=== PATIENT | female | born 1990 | race American Indian/Alaskan Native ===

== ENCOUNTER 2016-12-23 07:08 | Emergency (ER) | payer OTHER ==
[2016-12-23 07:33] VITALS: BP 155/96
[2016-12-23] MEDS ORDERED: TORADOL IM ONE (08:20)
[2016-12-23] MEDS ORDERED: NORCO 5/325 PO ONE (08:20)
--- NOTE | 2016-12-23 08:24 | Emergency Department Report ---
HPI - General Chief Complaint: Fall Time Seen by Provider: 12/23/16 08:13 - HPI HPI: 25-year-old female presents today complaining of right foot and ankle pain post falling down steps last night. Denies having any head injury or loss of consciousness. She describes her pain as 9 out of 10 constant, throbbing pain. Denies numbness, weakness, paresthesias. She denies taking any medication for pain relief. Denies fever, chills, nausea vomiting, chest pain, shortness of breath, abdominal pain. ED Past Medical Hx - Past Medical History Hx Asthma: Yes (as a child) Additional medical history: Bronchitis - Surgical History Past Surgical History?: No - Social History Smoking Status: Current Every Day Smoker Substance Use Type: Alcohol - Medications Home Medications: Home Medications Medication Instructions Recorded Confirmed Last Taken Type Gentamicin 0.3% Ophth Soln 2 drops OP Q4H #1 bottle 03/06/15 Unknown Rx Ibuprofen [Motrin] 800 mg PO Q8H PRN #30 tablet 03/06/15 Unknown Rx traMADol [Ultram] 50 mg PO Q6HR PRN #14 tablet 03/06/15 Unknown Rx Acetaminophen/Codeine [Tylenol #3] 1 tab PO Q6H PRN #15 tab 10/04/15 Unknown Rx Fluticasone [Flonase] 1 spray NS QDAY #1 bottle 10/04/15 Unknown Rx Ibuprofen [Motrin 800 MG tab] 800 mg PO Q8HR PRN #30 tablet 10/04/15 Unknown Rx guaiFENesin DM [Robitussin Dm] 5 ml PO Q6HR PRN #120 udc 10/04/15 Unknown Rx Albuterol Sulfate [Ventolin HFA] 2 puff IH Q4H PRN #1 hfa.aer.ad 06/02/16 Unknown Rx predniSONE [Deltasone] 50 mg PO QDAY #5 tab 06/02/16 Unknown Rx Naproxen [Naprosyn] 500 mg PO BID #30 tablet 12/23/16 Unknown Rx ED Review of Systems ROS: Stated complaint: R FOOT PAIN Other details as noted in HPI Constitutional: denies: chills, fever, malaise Eyes: denies: eye pain ENT: denies: ear pain, throat pain, congestion Respiratory: denies: cough, shortness of breath, wheezing Cardiovascular: denies: chest pain, palpitations Endocrine: no symptoms reported Gastrointestinal: denies: abdominal pain, nausea, vomiting Musculoskeletal: joint swelling, arthralgia Neurological: denies: headache, weakness, numbness, paresthesias Physical Exam - Physical Exam Vital Signs: Vital Signs 12/23/16 07:20 Temperature 98.2 F Pulse Rate 100 H Respiratory 17 Rate Blood Pressure 155/96 O2 Sat by Pulse 97 Oximetry Physical Exam: GENERAL: The patient is well-developed and well-nourished. Patient is in NAD. HEAD: Normocephalic. Atraumatic. NECK: Full range of motion. No midline or paraspinal tenderness to palpation. BACK: Full ROM. No midline or paraspinal tenderness to palpation. Negative Straight leg raise bilaterally. CHEST/LUNGS: Clear to auscultation throughout. HEART/CARDIOVASCULAR: Regular rate and rhythm. No murmurs, rubs or gallops. ABDOMEN: Abdomen is soft, nontender. Bowel sounds normoactive. No guarding or rebound tenderness. RIGHT FOOT/ANKLE: Limited range of motion due to pain. Tenderness to palpation over the lateral aspect right foot and ankle when mild edema. No deformity or crepitus noted. Peripheral pulses intact. Capillary refill less than 2 seconds. NEURO: Alert and oriented 3, fluid speech, EOMs intact, normal facial sensation , strength exam 5/5 upper and lower extremities, GCS equals 15 ED Course Vital Signs 12/23/16 07:20 Temperature 98.2 F Pulse Rate 100 H Respiratory 17 Rate Blood Pressure 155/96 O2 Sat by Pulse 97 Oximetry ED Medical Decision Making - Lab Data Vital Signs 12/23/16 12/23/16 12/23/16 07:20 08:50 10:05 Temperature 98.2 F Pulse Rate 100 H 88 Respiratory 17 22 20 Rate Blood Pressure 155/96 O2 Sat by Pulse 97 99 Oximetry - Radiology Data Radiology results: report reviewed Right ankle x-ray: The julio are well mineralized with normal bony contours and joint alignment. No fractures or destructive changes are noted and the adjacent soft tissues are normal. Right foot x-ray: The bony architecture is intact. Bony alignment is normal. No soft tissue abnormalities are seen. The joint spaces appear preserved. - Medical Decision Making 25-year-old female presents today with right ankle and foot pain post fall. Her x-ray results reveal no fracture or dislocation. Mikhail wrap has been applied. RICE therapy is recommended. Patient will be provided with a referral for orthopedic. Patient is in no acute distress at this time. She will be discharged home and is encouraged to follow up with a primary care provider. She will be sent home on Naprosyn and is encouraged to return to the emergency room for any worsening symptoms. Critical care attestation.: If time is entered above; I have spent that time in minutes in the direct care of this critically ill patient, excluding procedure time. ED Disposition Clinical Impression: Ankle pain Qualifiers: Laterality: right Chronicity: acute Qualified Code(s): M25.571 - Pain in right ankle and joints of right foot Foot pain Qualifiers: Laterality: right Qualified Code(s): M79.671 - Pain in right foot Disposition: DISCHARGED TO HOME OR SELFCARE Is pt being admited?: No Does the pt Need Aspirin: No Condition: Stable Instructions: Ankle Sprain (ED), Foot Sprain (ED), Ankle Exercises (GEN) Additional Instructions: Follow up with primary care provider. Return to the Emergency Department if symptoms worsen. Prescriptions: Naproxen [Naprosyn] 500 mg PO BID #30 tablet Referrals: PRIMARY CAREMD [Primary Care Provider] - 3-5 Days PETAR SUH MD [Staff Physician] - 3-5 Days [facility] [Outside] - 3-5 Days Forms: Accompanied Note, Work/School Release Form(ED) Time of Disposition: 09:54
--- NOTE | 2016-12-23 09:27 | XRay Report ---
RIGHT ANKLE: The bones are well mineralized with normal bony contours and joint alignment. No fractures or destructive changes are noted and the adjacent soft tissues are normal. IMPRESSION: Normal study.
--- NOTE | 2016-12-23 09:28 | XRay Report ---
RIGHT FOOT: The bony architecture is intact. Bony alignment is normal. No soft tissue abnormalities are seen. The joint spaces appear preserved. IMPRESSION: Normal right foot.
== END 2016-12-23 10:06 | disposition home or self-care (01) ==
LOC: ED 07:08
DX: M25.571 Pain in right ankle and joints of right foot (principal); M79.671 Pain in right foot; J45.909 Unspecified asthma, uncomplicated; F17.200 Nicotine dependence, unspecified, uncomplicated; W10.9XXA Fall (on) (from) unspecified stairs and steps, initial encounter; Y93.9 Activity, unspecified; Y92.9 Unspecified place or not applicable; Y99.9 Unspecified external cause status
CPT/HCPCS: 73610; 73630; 96372; 99283; J1885

== ENCOUNTER 2017-01-04 16:15 | Emergency (ER) | payer OTHER ==
[2017-01-04] MEDS ORDERED: TORADOL IV ONE (18:19)
[2017-01-04] MEDS ORDERED: NACL 0.9% 1000 ML 1,000 ML IV ONE (18:19)
[2017-01-04] MEDS ORDERED: COMPAZINE IV ONE ×2 (18:19→19:22)
--- NOTE | 2017-01-04 18:27 | Emergency Department Report ---
ED Headache HPI - General Chief Complaint: Headache Stated Complaint: MIGRAINE Time Seen by Provider: 01/04/17 18:09 Source: patient Exam Limitations: no limitations - History of Present Illness Initial Comments: PT states she has a hx of headaches. PT states she has seen Neurology for her headaches. PT states she has had previous MRI for her headache. PT states she was started on Medication at the end of last year for her headaches but she is still having headaches multiple times a week. PT is currently on Cymbalta, Topamax and Treximet. PT states her current headache started today at 1400, she took one pill of Treximet and no improvement. PT states this feels like previous migraines. Timing/Duration: 4-6 hours Quality: severe, constant, throbbing Recent Head Trauma: frequent headaches, chronic headaches Modifying Factors: improves with: exposure to light Associated Symptoms: nausea/vomiting. denies: loss of consciousness, seizures, sinus infection Allergies/Adverse Reactions: Allergies No Known Allergies Allergy (Verified 12/23/16 07:34) Home Medications: Ambulatory Orders Gentamicin 0.3% Ophth Soln 2 drops OP Q4H #1 bottle 03/06/15 Ibuprofen [Motrin] 800 mg PO Q8H PRN #30 tablet 03/06/15 traMADol [Ultram] 50 mg PO Q6HR PRN #14 tablet 03/06/15 Acetaminophen/Codeine [Tylenol #3] 1 tab PO Q6H PRN #15 tab 10/04/15 Fluticasone [Flonase] 1 spray NS QDAY #1 bottle 10/04/15 Ibuprofen [Motrin 800 MG tab] 800 mg PO Q8HR PRN #30 tablet 10/04/15 guaiFENesin DM [Robitussin Dm] 5 ml PO Q6HR PRN #120 udc 10/04/15 Albuterol Sulfate [Ventolin HFA] 2 puff IH Q4H PRN #1 hfa.aer.ad 06/02/16 predniSONE [Deltasone] 50 mg PO QDAY #5 tab 06/02/16 Naproxen [Naprosyn] 500 mg PO BID #30 tablet 12/23/16 ED Review of Systems ROS: Stated complaint: MIGRAINE Other details as noted in HPI Comment: All other systems reviewed and negative Constitutional: denies: fever ENT: denies: congestion Respiratory: denies: cough Gastrointestinal: nausea. denies: vomiting Genitourinary: denies: abnormal menses (lmp 12/24/16) Musculoskeletal: denies: back pain ED Past Medical Hx - Past Medical History Previous Medical History?: Yes Hx Headaches / Migraines: Yes Hx Asthma: Yes (as a child) Additional medical history: Bronchitis - Surgical History Past Surgical History?: No - Social History Smoking Status: Current Every Day Smoker Substance Use Type: Alcohol, Prescribed - Medications Home Medications: Home Medications Medication Instructions Recorded Confirmed Last Taken Type Gentamicin 0.3% Ophth Soln 2 drops OP Q4H #1 bottle 03/06/15 Unknown Rx Ibuprofen [Motrin] 800 mg PO Q8H PRN #30 tablet 03/06/15 Unknown Rx traMADol [Ultram] 50 mg PO Q6HR PRN #14 tablet 03/06/15 Unknown Rx Acetaminophen/Codeine [Tylenol #3] 1 tab PO Q6H PRN #15 tab 10/04/15 Unknown Rx Fluticasone [Flonase] 1 spray NS QDAY #1 bottle 10/04/15 Unknown Rx Ibuprofen [Motrin 800 MG tab] 800 mg PO Q8HR PRN #30 tablet 10/04/15 Unknown Rx guaiFENesin DM [Robitussin Dm] 5 ml PO Q6HR PRN #120 udc 10/04/15 Unknown Rx Albuterol Sulfate [Ventolin HFA] 2 puff IH Q4H PRN #1 hfa.aer.ad 06/02/16 Unknown Rx predniSONE [Deltasone] 50 mg PO QDAY #5 tab 06/02/16 Unknown Rx Naproxen [Naprosyn] 500 mg PO BID #30 tablet 12/23/16 Unknown Rx ED Physical Exam - General Limitations: No Limitations General appearance: alert, in no apparent distress - Head Head exam: Present: atraumatic, normocephalic - Eye Eye exam: Present: normal appearance, PERRL, EOMI. Absent: conjunctival injection - ENT ENT exam: Present: normal exam - Neck Neck exam: Present: normal inspection, full ROM - Respiratory Respiratory exam: Present: normal lung sounds bilaterally. Absent: respiratory distress, wheezes, rales, rhonchi, stridor - Cardiovascular Cardiovascular Exam: Present: regular rate, normal rhythm - GI/Abdominal GI/Abdominal exam: Present: soft. Absent: tenderness - Extremities Exam Extremities exam: Present: normal inspection, full ROM - Back Exam Back exam: Present: normal inspection, full ROM. Absent: CVA tenderness (R), CVA tenderness (L), muscle spasm, paraspinal tenderness - Neurological Exam Neurological exam: Present: alert, oriented X3, CN II-XII intact - Psychiatric Psychiatric exam: Present: normal affect, normal mood - Skin Skin exam: Present: warm, dry, intact ED Course Vital Signs 01/04/17 01/04/17 01/04/17 16:37 18:36 20:16 Temperature 98 F 97.8 F Pulse Rate 73 69 Respiratory 18 22 14 Rate Blood Pressure 132/71 Blood Pressure 133/84 [Left] O2 Sat by Pulse 99 99 Oximetry - Reevaluation(s) Reevaluation #1: 01/04/17 18:34 PT aware of plan of care. no questions at this time. Reevaluation #2: 01/04/17 21:23 PT states she is feeling better. PT denies n/v PT tolerating po while in ED - Pulse Oximetry Interpretation Digit-Finger Initial Pulse Oximetry Readin Actions Taken: none ED Medical Decision Making - Differential Diagnosis headache, migraine Critical care attestation.: If time is entered above; I have spent that time in minutes in the direct care of this critically ill patient, excluding procedure time. ED Disposition Clinical Impression: Headache Qualifiers: Headache type: other headache syndrome Qualified Code(s): G44.89 - Other headache syndrome Disposition: DISCHARGED TO HOME OR SELFCARE Is pt being admited?: No Does the pt Need Aspirin: No Condition: Stable Instructions: Migraine Headache (ED), Acute Headache (ED) Additional Instructions: follow up with your neurologist in 2-3 days [address] or ETOH after taking Phenergan. Referrals: PRIMARY CARE, [Primary Care Provider] - 3-5 Days Forms: Work/School Release Form(ED) Time of Disposition: 21:25
[2017-01-04] MEDS ORDERED: NACL 0.9% IV ONE (19:22)
[2017-01-04 20:20] VITALS: BP 133/84
== END 2017-01-04 21:50 | disposition home or self-care (01) ==
LOC: ED 16:15
DX: G44.89 Other headache syndrome (principal); J45.909 Unspecified asthma, uncomplicated; F17.200 Nicotine dependence, unspecified, uncomplicated
CPT/HCPCS: 96361; 96365; 96375; 99282; J0780; J1885; J7030

== ENCOUNTER 2017-01-29 19:24 | Emergency (ER) | payer OTHER ==
[2017-01-29] MEDS ORDERED: PROVENTIL IH ONE (19:58)
[2017-01-29] MEDS ORDERED: MOTRIN PO ONE (23:34)
[2017-01-29] MEDS ORDERED: DUONEB 0.5 MG-3 MG/3 ML SOLN IH ONE (23:35)
[2017-01-30] LABS: Bacteria,Urine 1+ /HPF (Negative); Bilirubin,Urine NEG (Negative); Blood,Urine NEG (Negative); Ketones,Urine NEG (Negative); Leukocyte Esterase,Urine NEG (Negative); Mucus,Urine FEW /HPF; Nitrite,Urine NEG (Negative); Protein,Urine <15 mg/dL mg/dL (Negative); Urobilinogen,Urine < 2.0 mg/dL (<2.0)
--- NOTE | 2017-01-30 00:11 | Emergency Department Report ---
- General Chief Complaint: Upper Respiratory Infection Stated Complaint: HEADACHES, BODY PAIN Time Seen by Provider: 01/29/17 23:34 Source: patient Mode of arrival: Ambulatory Limitations: No Limitations - History of Present Illness Initial Comments: 26-year-old female past medical history migraines asthma presents with 3 days of nonproductive cough and body aches, patient states she has headache which is 5 out of 10 frontal, similar to her prior history of migraine headaches. Denies any significant fever or chills, no nausea or vomiting. States she has had slightly runny nose and mild nasal congestion. Alert and oriented 3 not in acute distress no stridor or wheezing on clinical exam MD Complaint: cough Onset/Timin -: days(s) Severity: moderate Consistency: intermittent Worsens With: nothing Associated Symptoms: myalgias, rhinorrhea, cough - Related Data Home Medications Medication Instructions Recorded Confirmed Last Taken Duloxetine HCl 30 mg PO DAILY 01/29/17 01/29/17 Unknown Topiramate 25 mg PO HS 01/29/17 01/29/17 Unknown Treximet 85-500 mg Tablet 1 tab PO BID 01/29/17 01/29/17 Unknown Previous Rx's Medication Instructions Recorded Last Taken Type Albuterol Sulfate [Ventolin HFA] 2 puff IH Q4H PRN #1 hfa.aer.ad 06/02/16 Unknown Rx ALBUTEROL Inhaler [ProAir HFA 2 puff IH QID PRN #1 inhalation 01/30/17 Unknown Rx Inhaler] Fluticasone [Flonase] 1 spray NS QDAY PRN #1 bottle 01/30/17 Unknown Rx Naproxen [Naprosyn TAB] 500 mg PO BID PRN #20 tablet 01/30/17 Unknown Rx Allergies Allergy/AdvReac Type Severity Reaction Status Date / Time No Known Allergies Allergy Verified 12/23/16 07:34 ED Review of Systems ROS: Stated complaint: HEADACHES, BODY PAIN Other details as noted in HPI Constitutional: denies: chills, fever Eyes: denies: eye pain, eye discharge, vision change ENT: congestion. denies: ear pain, throat pain Respiratory: cough. denies: shortness of breath, wheezing Cardiovascular: denies: chest pain, palpitations Endocrine: no symptoms reported Gastrointestinal: denies: abdominal pain, nausea, diarrhea Genitourinary: denies: urgency, dysuria, discharge Musculoskeletal: denies: back pain, joint swelling, arthralgia Skin: denies: rash, lesions Neurological: denies: headache, weakness, paresthesias Psychiatric: denies: anxiety, depression Hematological/Lymphatic: denies: easy bleeding, easy bruising ED Past Medical Hx - Past Medical History Hx Headaches / Migraines: Yes Hx Asthma: Yes (as a child) Additional medical history: Bronchitis - Surgical History Additional Surgical History: X1 - Social History Smoking Status: Never Smoker Substance Use Type: None - Medications Home Medications: Home Medications Medication Instructions Recorded Confirmed Last Taken Type Albuterol Sulfate [Ventolin HFA] 2 puff IH Q4H PRN #1 hfa.aer.ad 06/02/16 Unknown Rx Duloxetine HCl 30 mg PO DAILY 01/29/17 01/29/17 Unknown History Topiramate 25 mg PO HS 01/29/17 01/29/17 Unknown History Treximet 85-500 mg Tablet 1 tab PO BID 01/29/17 01/29/17 Unknown History ALBUTEROL Inhaler [ProAir HFA 2 puff IH QID PRN #1 inhalation 01/30/17 Unknown Rx Inhaler] Fluticasone [Flonase] 1 spray NS QDAY PRN #1 bottle 01/30/17 Unknown Rx Naproxen [Naprosyn TAB] 500 mg PO BID PRN #20 tablet 01/30/17 Unknown Rx ED Physical Exam - General Limitations: No Limitations General appearance: alert, in no apparent distress - Head Head exam: Present: atraumatic, normocephalic - Eye Eye exam: Present: normal appearance, PERRL, EOMI - ENT ENT exam: Present: mucous membranes moist - Neck Neck exam: Present: normal inspection, full ROM - Respiratory Respiratory exam: Present: normal lung sounds bilaterally. Absent: respiratory distress - Cardiovascular Cardiovascular Exam: Present: regular rate, normal rhythm. Absent: systolic murmur, diastolic murmur, rubs, gallop - GI/Abdominal GI/Abdominal exam: Present: soft, normal bowel sounds - Extremities Exam Extremities exam: Present: normal inspection, full ROM - Back Exam Back exam: Present: normal inspection - Neurological Exam Neurological exam: Present: alert, oriented X3, CN II-XII intact, normal gait - Psychiatric Psychiatric exam: Present: normal affect, normal mood - Skin Skin exam: Present: warm, dry, intact, normal color. Absent: rash ED Course Vital Signs 01/29/17 01/29/17 01/29/17 19:46 20:37 20:45 Temperature 98.6 F Pulse Rate 69 Pulse Rate [ 60 64 Posterior Bilateral Throughout] Respiratory 18 Rate Respiratory 16 16 Rate [Posterior Bilateral Throughout] Blood Pressure 140/76 Blood Pressure 140/76 [Left] O2 Sat by Pulse 96 Oximetry 01/30/17 01/30/17 01/30/17 00:02 00:10 00:15 Temperature Pulse Rate Pulse Rate [ 53 L 58 L Posterior Bilateral Throughout] Respiratory 18 Rate Respiratory 16 16 Rate [Posterior Bilateral Throughout] Blood Pressure Blood Pressure [Left] O2 Sat by Pulse Oximetry 01/30/17 00:45 Temperature 97.6 F Pulse Rate 62 Pulse Rate [ Posterior Bilateral Throughout] Respiratory 18 Rate Respiratory Rate [Posterior Bilateral Throughout] Blood Pressure Blood Pressure 114/72 [Left] O2 Sat by Pulse 97 Oximetry ED Medical Decision Making - Medical Decision Making A/P: Viral syndrome, asthma, migraine 1-patient states she feels better after 2 nebulizer treatments, mild improvement of headache with Motrin, influenza swab negative, vital stable 2-naproxen when necessary, albuterol inhaler, Flonase when necessary 3-follow-up with primary care doctor 4-patient has no neurological deficits on exam, cn 1-12 intact Critical care attestation.: If time is entered above; I have spent that time in minutes in the direct care of this critically ill patient, excluding procedure time. ED Disposition Clinical Impression: Viral syndrome Disposition: DISCHARGED TO HOME OR SELFCARE Is pt being admited?: No Does the pt Need Aspirin: No Condition: Stable Instructions: Viral Syndrome (ED) Prescriptions: ALBUTEROL Inhaler [ProAir HFA Inhaler] 2 puff IH QID PRN #1 inhalation PRN Reason: Shortness Of Breath Fluticasone [Flonase] 1 spray NS QDAY PRN #1 bottle PRN Reason: Congestion Naproxen [Naprosyn TAB] 500 mg PO BID PRN #20 tablet PRN Reason: Headache Referrals: ROBERT PEDROZA MD [Staff Physician] - 3-5 Days [facility] [Outside] - 3-5 Days Forms: Work/School Release Form(ED) Time of Disposition: 00:55
[2017-01-30 00:46] VITALS: BP 114/72
== END 2017-01-30 01:54 | disposition home or self-care (01) ==
LOC: ED 19:24
DX: B34.9 Viral infection, unspecified (principal); J45.909 Unspecified asthma, uncomplicated
CPT/HCPCS: 81001; 81025; 87400; 94640

== ENCOUNTER 2017-02-09 12:25 | Emergency (ER) | payer OTHER ==
[2017-02-09 13:15] LABS: Hematocrit 37.9 % (30.3-42.9); Hemoglobin 12.3 gm/dl (10.1-14.3); Mean Corpuscular HGB Conc 32 % (30-34); Mean Corpuscular Hemoglobin 27 pg (28-32); Mean Corpuscular Volume 83 fl (79-97); Platelet Count 227 K/mm3 (140-440); Red Blood Count 4.56 M/mm3 (3.65-5.03); Red Cell Distribution Width 14.3 % (13.2-15.2); White Blood Count 3.1 K/mm3 (4.5-11.0)
[2017-02-09 13:32] LABS: Creatine Kinase MB 1.4 ng/mL (0.0-4.0)
[2017-02-09 13:33] LABS: Anion Gap 19 mmol/L; BUN/Creatinine Ratio 23.33; Blood Urea Nitrogen 14 mg/dL (7-17); Calcium 9.1 mg/dL (8.4-10.2); Carbon Dioxide 22 mmol/L (22-30); Chloride 99.9 mmol/L (98-107); Creatine Kinase 126 units/L (30-135); Glucose 118 mg/dL (65-100); Potassium 3.7 mmol/L (3.6-5.0); Sodium 137 mmol/L (137-145)
[2017-02-09 14:04] LABS: Blastocytes % (Manual) 0 %
[2017-02-09 14:05] LABS: Diff Status Complete; Large Platelets Rare; Polychromasia Few
--- NOTE | 2017-02-09 22:02 | Emergency Department Report ---
ED Headache HPI - General Chief Complaint: Chest Pain Stated Complaint: HEAD AND CHEST PAIN Time Seen by Provider: 02/09/17 21:28 Source: patient Exam Limitations: no limitations - History of Present Illness Initial Comments: Patient is a 26-year-old female with a history of migraines presenting with left -sided headache times one day. Patient reports she was sitting at home when she started to get a left-sided headache associated with intermittent sharp left chest pains, nausea and vomiting 1 episode. Patient reports the chest pain has resolved which her headache remains. Patient has a history of migraines and takes Topamax and 2 other medications for pain control however no relief today. Otherwise no fevers, dizziness, neck pain, URI symptoms, visual changes, hearing changes, photophobia, shortness of breath, bowel pain, travel, or sick contacts. Allergies/Adverse Reactions: Allergies No Known Allergies Allergy (Verified 12/23/16 07:34) Home Medications: Ambulatory Orders Albuterol Sulfate [Ventolin HFA] 2 puff IH Q4H PRN #1 hfa.aer.ad 06/02/16 Duloxetine HCl 30 mg PO DAILY 01/29/17 Topiramate 25 mg PO HS 01/29/17 Treximet 85-500 mg Tablet 1 tab PO BID 01/29/17 ALBUTEROL Inhaler [ProAir HFA Inhaler] 2 puff IH QID PRN #1 inhalation 01/30/17 Fluticasone [Flonase] 1 spray NS QDAY PRN #1 bottle 01/30/17 Naproxen [Naprosyn TAB] 500 mg PO BID PRN #20 tablet 01/30/17 ED Review of Systems ROS: Stated complaint: HEAD AND CHEST PAIN Other details as noted in HPI Comment: All other systems reviewed and negative ED Past Medical Hx - Past Medical History Hx Headaches / Migraines: Yes Hx Asthma: Yes (as a child) Additional medical history: Bronchitis - Surgical History Additional Surgical History: X1 - Social History Smoking Status: Never Smoker Substance Use Type: None - Medications Home Medications: Home Medications Medication Instructions Recorded Confirmed Last Taken Type Albuterol Sulfate [Ventolin HFA] 2 puff IH Q4H PRN #1 hfa.aer.ad 06/02/16 Unknown Rx Duloxetine HCl 30 mg PO DAILY 01/29/17 01/29/17 Unknown History Topiramate 25 mg PO HS 01/29/17 01/29/17 Unknown History Treximet 85-500 mg Tablet 1 tab PO BID 01/29/17 01/29/17 Unknown History ALBUTEROL Inhaler [ProAir HFA 2 puff IH QID PRN #1 inhalation 01/30/17 Unknown Rx Inhaler] Fluticasone [Flonase] 1 spray NS QDAY PRN #1 bottle 01/30/17 Unknown Rx Naproxen [Naprosyn TAB] 500 mg PO BID PRN #20 tablet 01/30/17 Unknown Rx ED Physical Exam - General Limitations: No Limitations General appearance: alert, in no apparent distress - Head Head exam: Present: atraumatic, normocephalic - Eye Eye exam: Present: normal appearance - ENT ENT exam: Present: mucous membranes moist - Neck Neck exam: Present: normal inspection - Respiratory Respiratory exam: Present: normal lung sounds bilaterally. Absent: respiratory distress - Cardiovascular Cardiovascular Exam: Present: regular rate, normal rhythm. Absent: systolic murmur, diastolic murmur, rubs, gallop - GI/Abdominal GI/Abdominal exam: Present: soft, normal bowel sounds - Extremities Exam Extremities exam: Present: normal inspection - Back Exam Back exam: Present: normal inspection - Neurological Exam Neurological exam: Present: alert, oriented X3, CN II-XII intact, normal gait, reflexes normal. Absent: motor sensory deficit - Psychiatric Psychiatric exam: Present: normal affect, normal mood - Skin Skin exam: Present: warm, dry, intact, normal color. Absent: rash ED Course Vital Signs 02/09/17 02/09/17 02/09/17 12:30 21:36 21:38 Temperature 98.2 F Pulse Rate 123 H 73 Respiratory 20 16 16 Rate Blood Pressure 149/103 Blood Pressure 139/81 [Left] O2 Sat by Pulse 99 98 Oximetry ED Medical Decision Making - Lab Data Result diagrams: 02/09/17 12:40 02/09/17 12:40 - EKG Data -: EKG Interpreted by Me (12:35) EKG shows normal: sinus rhythm, axis (normal axis), intervals (QTC: 382 ms), ST- T waves (no ST changes, no STEMI) Rate: normal (70 bpm) Critical care attestation.: If time is entered above; I have spent that time in minutes in the direct care of this critically ill patient, excluding procedure time. ED Disposition Clinical Impression: Chest wall pain, Headache Disposition: DISCHARGED TO HOME OR SELFCARE Is pt being admited?: No Condition: Stable Instructions: Chest Pain (ED), Migraine Headache (ED) Additional Instructions: Please also follow up with your neurologist Referrals: PRIMARY CARE, [Primary Care Provider] - 3-5 Days
[2017-02-09] MEDS ORDERED: NACL 0.9% 1000 ML 1,000 ML IV ONE (22:22)
[2017-02-09] MEDS ORDERED: REGLAN IV ONE (22:22)
[2017-02-09] MEDS ORDERED: TORADOL IV ONE (22:22)
[2017-02-10 01:03] VITALS: BP 138/80
--- NOTE | 2017-02-10 08:34 | XRay Report ---
CHEST TWO VIEWS: 02/10/17 CLINICAL: Chest pain. COMPARISON: 05/22/12 FINDINGS: Normal heart and pulmonary vasculature. The lungs are normally expanded and clear.Mild thoracic scoliosis. IMPRESSION: No acute cardiopulmonary process.
== END 2017-02-10 01:03 | disposition home or self-care (01) ==
LOC: ED 12:25
DX: R51 Headache (principal); R07.89 Other chest pain; G43.909 Migraine, unspecified, not intractable, without status migrainosus; J45.909 Unspecified asthma, uncomplicated
CPT/HCPCS: 36415; 71020; 80048; 81025; 82550; 82553; 84484; 85007; 85025; 85379; 93005; 93010; 96361; 96374; 96375; 99285; J1885; J2765; J7030

== ENCOUNTER 2017-04-01 14:45 | Emergency (ER) | payer OTHER ==
[2017-04-01 16:03] LABS: Eosinophils % (Auto) 10.4 % (0.0-4.3); Hematocrit 36.3 % (30.3-42.9); Hemoglobin 11.4 gm/dl (10.1-14.3); Mean Corpuscular HGB Conc 32 % (30-34); Mean Corpuscular Hemoglobin 26 pg (28-32); Mean Corpuscular Volume 84 fl (79-97); Platelet Count 267 K/mm3 (140-440); Red Blood Count 4.33 M/mm3 (3.65-5.03); Red Cell Distribution Width 13.7 % (13.2-15.2)
[2017-04-01 16:09] LABS: Anion Gap 19 mmol/L; Blood Urea Nitrogen 18 mg/dL (7-17); Calcium 9.2 mg/dL (8.4-10.2); Carbon Dioxide 23 mmol/L (22-30); Chloride 100.1 mmol/L (98-107); Glucose 86 mg/dL (65-100); Potassium 3.7 mmol/L (3.6-5.0); Sodium 138 mmol/L (137-145)
--- NOTE | 2017-04-02 01:32 | Emergency Department Report ---
HPI - General Chief Complaint: Chest Pain Time Seen by Provider: 04/02/17 00:35 - HPI HPI: Room 24 The patient is a 26-year-old female presenting with a chief complaint of headache. The patient states she's had a headache intermittently for 1 day. Patient states it feels like one of her migraines. The patient admits to frequent migraines and she has been "a couple a week." The patient states she normally takes topiramate and duloxetine but she has been out for the past 2-3 days. Patient denies nausea vomiting. Patient denies fever. The patient gives her pain a score of 6-7/10. Patient denies other complaints to myself Location: Calvarium Duration: Intermittent times one day Quality: Migraine Severity: 6-7/10 Modifying factors: [see above] Context: [see above] Mode of transportation: The patient drove herself to the emergency department states that there are no other drivers available ED Past Medical Hx - Past Medical History Hx Headaches / Migraines: Yes Hx Asthma: Yes (as a child) Additional medical history: Bronchitis - Surgical History Additional Surgical History: X1 - Family History Family history: no significant - Social History Smoking Status: Never Smoker Substance Use Type: None - Medications Home Medications: Home Medications Medication Instructions Recorded Confirmed Last Taken Type Albuterol Sulfate [Ventolin HFA] 2 puff IH Q4H PRN #1 hfa.[email or web address] 06/02/16 Unknown Rx Treximet 85-500 mg Tablet 1 tab PO BID 01/29/17 01/29/17 Unknown History ALBUTEROL Inhaler [ProAir HFA 2 puff IH QID PRN #1 inhalation 01/30/17 Unknown Rx Inhaler] Fluticasone [Flonase] 1 spray NS QDAY PRN #1 bottle 01/30/17 Unknown Rx Naproxen [Naprosyn TAB] 500 mg PO BID PRN #20 tablet 01/30/17 Unknown Rx Duloxetine HCl 30 mg PO DAILY #30 04/02/17 Unknown Rx Topiramate 25 mg PO HS #30 04/02/17 Unknown Rx oxyCODONE /ACETAMINOPHEN [Percocet 1 - 2 tab PO Q6HR PRN #12 tablet 04/02/17 Unknown Rx 5/325] ED Review of Systems ROS: Stated complaint: COLD SYMPTOMS/HEADACHE Other details as noted in HPI Comment: All other systems reviewed and negative Constitutional: denies: chills, fever Eyes: denies: eye pain, eye discharge, vision change ENT: denies: ear pain, throat pain Respiratory: denies: cough, shortness of breath, wheezing Cardiovascular: denies: chest pain, palpitations Endocrine: no symptoms reported Gastrointestinal: denies: abdominal pain, nausea, diarrhea Genitourinary: denies: urgency, dysuria, discharge Musculoskeletal: denies: back pain, joint swelling, arthralgia Skin: denies: rash, lesions Neurological: headache Psychiatric: denies: anxiety, depression Hematological/Lymphatic: denies: easy bleeding, easy bruising Physical Exam - Physical Exam Vital Signs: Vital Signs 04/01/17 04/01/17 04/02/17 15:29 19:51 00:14 Temperature 98.1 F 98.5 F Pulse Rate 86 67 74 Respiratory 20 16 16 Rate Blood Pressure 143/93 Blood Pressure 135/74 119/75 [Right] O2 Sat by Pulse 100 100 96 Oximetry Physical Exam: GENERAL: The patient is well-developed well-nourished female lying on stretcher not appearing to be in acute distress. [] HEENT: Normocephalic. Atraumatic. Extraocular motions are intact. Patient has moist mucous membranes. NECK: Supple. No meningitic signs are noted. Trachea midline CHEST/LUNGS: Clear to auscultation. There is no respiratory distress noted. HEART/CARDIOVASCULAR: Regular. There is no tachycardia. There is no gallop rub or murmur. ABDOMEN: Abdomen is soft, nontender. Patient has normal bowel sounds. There is no abdominal distention. SKIN: There is no rash. There is no edema. There is no diaphoresis. NEURO: The patient is awake, alert, and oriented. The patient is cooperative. The patient has no focal neurologic deficits. The patient has normal speech. Cranial nerves II through XII grossly intact, no drift. Cardiovascular Invasive Specialist 5+/5 bilaterally MUSCULOSKELETAL: There is no evidence of acute injury. ED Course Vital Signs 04/01/17 04/01/17 04/02/17 15:29 19:51 00:14 Temperature 98.1 F 98.5 F Pulse Rate 86 67 74 Respiratory 20 16 16 Rate Blood Pressure 143/93 Blood Pressure 135/74 119/75 [Right] O2 Sat by Pulse 100 100 96 Oximetry ED Medical Decision Making - Lab Data Result diagrams: 04/01/17 15:36 04/01/17 15:36 Laboratory Tests 04/01/17 04/01/17 04/01/17 15:36 15:36 19:11 WBC 4.0 L RBC 4.33 Hgb 11.4 Hct 36.3 MCV 84 MCH 26 L MCHC 32 RDW 13.7 Plt Count 267 Lymph % (Auto) 37.4 H [place] % (Auto) 11.9 H Eos % (Auto) 10.4 H Baso % (Auto) 1.0 Lymph # 1.5 [place] # 0.5 Eos # 0.4 Baso # 0.0 Seg Neutrophils % 39.3 L Seg Neutrophils # 1.6 L Sodium 138 Potassium 3.7 Chloride 100.1 Carbon Dioxide 23 Anion Gap 19 BUN 18 H Creatinine 0.6 L Estimated GFR > 60 BUN/Creatinine Ratio 30.00 Glucose 86 Calcium 9.2 Troponin T < 0.010 < 0.010 04/01/17 21:04 WBC RBC Hgb Hct MCV MCH MCHC RDW Plt Count Lymph % (Auto) [place] % (Auto) Eos % (Auto) Baso % (Auto) Lymph # [place] # Eos # Baso # Seg Neutrophils % Seg Neutrophils # Sodium Potassium Chloride Carbon Dioxide Anion Gap BUN Creatinine Estimated GFR BUN/Creatinine Ratio Glucose Calcium Troponin T < 0.010 - EKG Data -: EKG Interpreted by Me EKG shows normal: sinus rhythm Rate: normal - EKG Data When compared to previous EKG there are: previous EKG unavailable Interpretation: other (no ischemic changes seen) - Radiology Data Radiology results: report reviewed (CT head), image reviewed (CT head) CT head (read by radiologist)-normal CT of the head. No acute intracranial process noted Critical care attestation.: If time is entered above; I have spent that time in minutes in the direct care of this critically ill patient, excluding procedure time. ED Disposition Clinical Impression: Migraine headache Disposition: - TO HOME OR SELFCARE Is pt being admited?: No Does the pt Need Aspirin: No Condition: Stable Instructions: Migraine Headache (ED) Additional Instructions: Return to the emergency department immediately should you develop worsening symptoms, fever, inability to tolerate food or liquid or any other concerns. Prescriptions: Duloxetine HCl 30 mg PO DAILY #30 oxyCODONE /ACETAMINOPHEN [Percocet 5/325] 1 - 2 tab PO Q6HR PRN #12 tablet PRN Reason: Pain Topiramate 25 mg PO HS #30 Referrals: PRIMARY CARE,MD [Primary Care Provider] - 3-5 Days your, neurologist [Other] - 3-5 Days Time of Disposition: 02:26
--- NOTE | 2017-04-02 02:24 | Cat Scan Report ---
FINAL REPORT EXAM: CT HEAD/BRAIN WO CON HISTORY: headache TECHNIQUE: Standard unenhanced CT of the head at 5.0 millimeter axial increments PRIORS: None. FINDINGS: The ventricular system is normal in size and configuration. There is no evidence for parenchymal volume loss. There is no evidence for mass lesion, mass effect, midline shift, acute intracranial hemorrhage, or acute ischemia/ infarction. Visualized paranasal sinuses are clear. IMPRESSION: Negative CT of the head. No acute intracranial process noted.
[2017-04-02] MEDS ORDERED: SUBLIMAZE IM ONE (02:28)
[2017-04-02] MEDS ORDERED: ZOFRAN IM ONE (02:28)
[2017-04-02] MEDS ORDERED: FIORICET PO ONE (02:29)
[2017-04-02 02:46] VITALS: BP 120/66
== END 2017-04-02 02:50 | disposition home or self-care (01) ==
LOC: ED 14:45
DX: G43.909 Migraine, unspecified, not intractable, without status migrainosus (principal); J45.909 Unspecified asthma, uncomplicated
CPT/HCPCS: 36415; 70450; 80048; 84484; 84703; 85025; 93005; 93010; 96372; 99285; J2405; J3010

== ENCOUNTER 2017-04-29 04:49 | Emergency (ER) | payer OTHER ==
[2017-04-29] MEDS ORDERED: DUONEB *Not for PRN Use IH ONE (08:35)
[2017-04-29] MEDS ORDERED: NACL 0.9% 1000 ML 1,000 ML IV ONE (08:35)
[2017-04-29] MEDS ORDERED: TORADOL IV ONE (08:36)
--- NOTE | 2017-04-29 09:14 | Emergency Department Report ---
ED General Adult HPI - General Chief complaint: Headache Stated complaint: HEAD PAIN/DIZZINESS Time Seen by Provider: 04/29/17 08:21 Source: patient Mode of arrival: Ambulatory Limitations: No Limitations - History of Present Illness Initial comments: PT states she is out of her headache medication. PT states sometimes she takes more than once a day. PT reports an intermittent headache x 3 days. PT states this headache started when she was at work and feels like other headaches she has had. PT states she typically gets headaches at least 3 times a week. PT rates her pain 7/10. Pt states she is having eye discharge, nasal congestion and cough. PT states she has seen her neurologist for her headaches and was dx with migraine but her follow up appointment keeps getting rescheduled. PT states she is out of her medication and she would like refills. PT states she does not have a PCP. MD Complaint: headache Onset/Timin -: Gradual, days(s) Location: head Severity scale (0 -10): 7 Quality: other (throbbing ) Consistency: intermittent Improves with: none Worsens with: other (bright light ) Associated Symptoms: cough, nausea/vomiting. denies: chest pain, fever/chills, shortness of breath Treatments Prior to Arrival: none - Related Data Home Medications Medication Instructions Recorded Confirmed Last Taken Treximet 85-500 mg Tablet 1 tab PO BID 01/29/17 01/29/17 Unknown Previous Rx's Medication Instructions Recorded Last Taken Type ALBUTEROL Inhaler [ProAir HFA 2 puff IH QID PRN #1 inhalation 04/29/17 Unknown Rx Inhaler] DULoxetine [Cymbalta] 30 mg PO QDAY #10 capsule 04/29/17 Unknown Rx Fluticasone [Flonase] 1 spray NS QDAY PRN #1 bottle 04/29/17 Unknown Rx Ibuprofen [Motrin] 600 mg PO Q8H PRN #15 tablet 04/29/17 Unknown Rx Tobramycin 0.3% [Tobrex] 1 drop OD QID 7 Days 04/29/17 Unknown Rx Topiramate [Topamax] 25 mg PO HS #10 tablet 04/29/17 Unknown Rx Allergies Allergy/AdvReac Type Severity Reaction Status Date / Time No Known Allergies Allergy Verified 04/01/17 15:29 ED Review of Systems ROS: Stated complaint: HEAD PAIN/DIZZINESS Other details as noted in HPI Comment: All other systems reviewed and negative Constitutional: denies: chills, fever Eyes: eye pain (photophobia ), eye discharge ENT: congestion Respiratory: cough. denies: shortness of breath, SOB with exertion, SOB at rest Cardiovascular: denies: chest pain Gastrointestinal: nausea, vomiting (x 1 ). denies: abdominal pain Genitourinary: denies: abnormal menses Neurological: headache. denies: weakness ED Past Medical Hx - Past Medical History Previous Medical History?: Yes Hx Headaches / Migraines: Yes Hx Asthma: Yes (as a child) Additional medical history: Bronchitis - Surgical History Past Surgical History?: Yes Additional Surgical History: X1 - Social History Smoking Status: Never Smoker Substance Use Type: None - Medications Home Medications: Home Medications Medication Instructions Recorded Confirmed Last Taken Type Treximet 85-500 mg Tablet 1 tab PO BID 01/29/17 01/29/17 Unknown History ALBUTEROL Inhaler [ProAir HFA 2 puff IH QID PRN #1 inhalation 04/29/17 Unknown Rx Inhaler] DULoxetine [Cymbalta] 30 mg PO QDAY #10 capsule 04/29/17 Unknown Rx Fluticasone [Flonase] 1 spray NS QDAY PRN #1 bottle 04/29/17 Unknown Rx Ibuprofen [Motrin] 600 mg PO Q8H PRN #15 tablet 04/29/17 Unknown Rx Tobramycin 0.3% [Tobrex] 1 drop OD QID 7 Days 04/29/17 Unknown Rx Topiramate [Topamax] 25 mg PO HS #10 tablet 04/29/17 Unknown Rx ED Physical Exam - General Limitations: No Limitations General appearance: alert, in no apparent distress - Head Head exam: Present: atraumatic, normocephalic, normal inspection - Eye Eye exam: Present: PERRL, EOMI, conjunctival injection (cathleen ) Pupils: Present: normal accommodation - Expanded Eye Exam Expanded Sclera/Conjunctival: Injection: Bilateral, Exudate: Bilateral - ENT ENT exam: Present: mucous membranes moist, TM's normal bilaterally, normal external ear exam, other (cathleen turbinate hypertrophy ) - Expanded ENT Exam Expanded Mouth exam: Absent: drooling, trismus Throat exam: Positive: other (clear post nasal drainage ). Negative: tonsillar erythema, tonsillomegaly, tonsillar exudate - Neck Neck exam: Present: normal inspection, full ROM. Absent: tenderness, meningismus, lymphadenopathy - Respiratory Respiratory exam: Present: normal lung sounds bilaterally, other (dry cough during exam ). Absent: respiratory distress, wheezes - Cardiovascular Cardiovascular Exam: Present: regular rate, normal rhythm, normal heart sounds - GI/Abdominal GI/Abdominal exam: Present: soft. Absent: tenderness - Extremities Exam Extremities exam: Present: normal inspection, full ROM - Back Exam Back exam: Present: normal inspection, full ROM. Absent: tenderness, CVA tenderness (R), CVA tenderness (L) - Neurological Exam Neurological exam: Present: alert, oriented X3, CN II-XII intact - Psychiatric Psychiatric exam: Present: normal affect, normal mood ED Course Vital Signs 04/29/17 04/29/17 04/29/17 05:10 09:00 09:04 Temperature 98.0 F Pulse Rate 62 Pulse Rate [ 65 Bilateral Upper Lobe] Respiratory 18 18 Rate Respiratory 18 Rate [Bilateral Upper Lobe] Blood Pressure 135/78 Blood Pressure [Left] O2 Sat by Pulse 100 Oximetry 04/29/17 04/29/17 04/29/17 09:11 09:30 11:03 Temperature 98.6 F Pulse Rate 74 Pulse Rate [ 66 Bilateral Upper Lobe] Respiratory 18 18 Rate Respiratory 18 Rate [Bilateral Upper Lobe] Blood Pressure Blood Pressure 130/72 [Left] O2 Sat by Pulse 99 Oximetry - Reevaluation(s) Reevaluation #1: 04/29/17 10:40 PT states she is feeling better. PT states her cough resolved after neb. PT denies pain at this time. PT aware of plan of care and she has no questions at this time. - Pulse Oximetry Interpretation Digit-Finger Initial Pulse Oximetry Readin Actions Taken: none ED Medical Decision Making - Differential Diagnosis uri, sinusitis, migraine Critical Care Time: No Critical care attestation.: If time is entered above; I have spent that time in minutes in the direct care of this critically ill patient, excluding procedure time. ED Disposition Clinical Impression: URI with cough and congestion Conjunctivitis Qualifiers: Conjunctivitis type: acute Acute conjunctivitis type: unspecified Laterality: bilateral Qualified Code(s): H10.33 - Unspecified acute conjunctivitis, bilateral Headache Qualifiers: Headache type: unspecified Headache chronicity pattern: acute headache Intractability: not intractable Qualified Code(s): R51 - Headache Disposition: DC-01 TO HOME OR SELFCARE Is pt being admited?: No Does the pt Need Aspirin: No Condition: Stable Instructions: Conjunctivitis (ED), Upper Respiratory Infection (ED), Allergic Rhinitis (ED), Acute Headache (ED) Additional Instructions: Follow up with PCP in 3-5 days Return to the ED if worsening or concerns Good hand hygiene Take your medication as prescribed Prescriptions: ALBUTEROL Inhaler [ProAir HFA Inhaler] 2 puff IH QID PRN #1 inhalation PRN Reason: Shortness Of Breath DULoxetine [Cymbalta] 30 mg PO QDAY #10 capsule Fluticasone [Flonase] 1 spray NS QDAY PRN #1 bottle PRN Reason: Congestion Ibuprofen [Motrin] 600 mg PO Q8H PRN #15 tablet PRN Reason: Pain Tobramycin 0.3% [Tobrex] 1 drop OD QID 7 Days Topiramate [Topamax] 25 mg PO HS #10 tablet Referrals: PRIMARY CARE, [Primary Care Provider] - 3-5 Days Forms: Work/School Release Form(ED) Time of Disposition: 10:45
[2017-04-29 11:04] VITALS: BP 130/72
== END 2017-04-29 11:04 | disposition home or self-care (01) ==
LOC: ED 04:49
DX: J06.9 Acute upper respiratory infection, unspecified (principal); R09.81 Nasal congestion; R05 Cough; H10.33 Unspecified acute conjunctivitis, bilateral; R51 Headache; G43.909 Migraine, unspecified, not intractable, without status migrainosus; J45.909 Unspecified asthma, uncomplicated
CPT/HCPCS: 94640; 96361; 96374; 96375; 99282; J1885; J2930; J7030

== ENCOUNTER 2018-06-07 19:48 | Emergency (ER) | payer OTHER ==
[2018-06-07] MEDS ORDERED: ASPIRIN PO ONE (20:27)
[2018-06-07 20:39] LABS: Basophils % (Auto) 0.8 % (0.0-1.8); Eosinophils # (Auto) 0.2 K/mm3 (0.0-0.4); Eosinophils % (Auto) 3.2 % (0.0-4.3); Hematocrit 34.1 % (30.3-42.9); Hemoglobin 11.3 gm/dl (10.1-14.3); Lymphocytes # (Auto) 2.4 K/mm3 (1.2-5.4); Lymphocytes % (Auto) 40.8 % (13.4-35.0); Mean Corpuscular HGB Conc 33 % (30-34); Mean Corpuscular Hemoglobin 27 pg (28-32); Mean Corpuscular Volume 81 fl (79-97); Monocytes # (Auto) 0.8 K/mm3 (0.0-0.8); Platelet Count 282 K/mm3 (140-440); Red Blood Count 4.24 M/mm3 (3.65-5.03); Red Cell Distribution Width 14.3 % (13.2-15.2)
[2018-06-07 20:54] LABS: BUN/Creatinine Ratio 19; Blood Urea Nitrogen 13 mg/dL (7-17); Calcium 9.1 mg/dL (8.4-10.2); Hemolysis Index 4
--- NOTE | 2018-06-08 01:25 | Emergency Department Report ---
HPI - General Chief Complaint: Chest Pain Time Seen by Provider: 06/08/18 01:12 - HPI HPI: Room 10 The patient is a 27-year-old female presenting with a chief complaint of chest pain. The patient states she's had sharp substernal chest pain for 1 day. Patient describes pain as intermittent in nature. Patient states she has slight shortness of breath and yesterday she had an episode of vomiting. Patient denies pleurisy but admits to a cough that has been nonproductive for one day. Patient denies any history of fever. Patient currently gives her pain a score of 7/10 Location: [See above] Duration: One day Quality: Sharp Severity:7/10 Modifying factors: [see above] Context: [see above] Mode of transportation: [not driving] ED Past Medical Hx - Past Medical History Hx Headaches / Migraines: Yes Hx Asthma: Yes (as a child) Additional medical history: Bronchitis - Surgical History Past Surgical History?: No Additional Surgical History: X1 - Family History Family history: no significant - Social History Smoking Status: Current Some Day Smoker Substance Use Type: None - Medications Home Medications: Home Medications Medication Instructions Recorded Confirmed Last Taken Type Treximet 85-500 mg Tablet 1 tab PO BID 01/29/17 01/29/17 Unknown History ALBUTEROL Inhaler (OR & NICU) 2 puff IH QID PRN #1 inhalation 04/29/17 Unknown Rx [ProAir HFA Inhaler] DULoxetine [Cymbalta] 30 mg PO QDAY #10 capsule 04/29/17 Unknown Rx Fluticasone [Flonase] 1 spray NS QDAY PRN #1 bottle 04/29/17 Unknown Rx Ibuprofen [Motrin] 600 mg PO Q8H PRN #15 tablet 04/29/17 Unknown Rx Tobramycin 0.3% [Tobrex] 1 drop OD QID 7 Days bottle 04/29/17 Unknown Rx Topiramate [Topamax] 25 mg PO HS #10 tablet 04/29/17 Unknown Rx Ibuprofen [Motrin 800 MG tab] 800 mg PO Q8HR PRN #20 tablet 06/08/18 Unknown Rx Tramadol HCl [Ultram] 50 mg PO Q6H PRN #10 tablet 06/08/18 Unknown Rx ED Review of Systems ROS: Stated complaint: CHEST PAIN/MIGRAINE Other details as noted in HPI Constitutional: denies: fever Eyes: denies: eye pain ENT: denies: throat pain Respiratory: shortness of breath Cardiovascular: chest pain Endocrine: no symptoms reported Gastrointestinal: denies: vomiting Genitourinary: denies: dysuria Musculoskeletal: denies: back pain Neurological: headache Physical Exam - Physical Exam Vital Signs: Vital Signs 06/07/18 20:24 Temperature 99.3 F Pulse Rate 72 Respiratory 16 Rate Blood Pressure 123/67 O2 Sat by Pulse 99 Oximetry Physical Exam: GENERAL: The patient is well-developed well-nourished female lying on stretcher not appearing to be in acute distress. [] HEENT: Normocephalic. Atraumatic. Extraocular motions are intact. Patient has moist mucous membranes. NECK: Supple. No meningitic signs are noted. No nuchal rigidity. Trachea midline CHEST/LUNGS: Clear to auscultation. There is no respiratory distress noted. HEART/CARDIOVASCULAR: Regular. There is no tachycardia. There is no gallop rub or murmur. ABDOMEN: Abdomen is soft, nontender. Patient has normal bowel sounds. There is no abdominal distention. SKIN: There is no rash. There is no edema. There is no diaphoresis. NEURO: The patient is awake, alert, and oriented. The patient is cooperative. The patient has no focal neurologic deficits. The patient has normal speech. Cranial nerves II through XII grossly intact, no drift MUSCULOSKELETAL:There is no evidence of acute injury. ED Course Vital Signs 06/07/18 20:24 Temperature 99.3 F Pulse Rate 72 Respiratory 16 Rate Blood Pressure 123/67 O2 Sat by Pulse 99 Oximetry ED Medical Decision Making - Lab Data Result diagrams: 06/07/18 20:30 06/07/18 20:30 Laboratory Tests 06/07/18 06/07/18 06/08/18 20:30 20:30 00:42 WBC 5.8 RBC 4.24 Hgb 11.3 Hct 34.1 MCV 81 MCH 27 L MCHC 33 RDW 14.3 Plt Count 282 Lymph % (Auto) 40.8 H [place] % (Auto) 14.0 H Eos % (Auto) 3.2 Baso % (Auto) 0.8 Lymph # 2.4 [place] # 0.8 Eos # 0.2 Baso # 0.0 Seg Neutrophils % 41.2 Seg Neutrophils # 2.4 D-Dimer Sodium 135 L Potassium 3.9 Chloride 99.4 Carbon Dioxide 22 Anion Gap 18 BUN 13 Creatinine 0.7 Estimated GFR > 60 BUN/Creatinine Ratio 19 Glucose 83 Calcium 9.1 Troponin T < 0.010 < 0.010 HCG, Qual 06/08/18 06/08/18 01:59 01:59 WBC RBC Hgb Hct MCV MCH MCHC RDW Plt Count Lymph % (Auto) [place] % (Auto) Eos % (Auto) Baso % (Auto) Lymph # [place] # Eos # Baso # Seg Neutrophils % Seg Neutrophils # D-Dimer < 135.00 Sodium Potassium Chloride Carbon Dioxide Anion Gap BUN Creatinine Estimated GFR BUN/Creatinine Ratio Glucose Calcium Troponin T HCG, Qual Negative - EKG Data -: EKG Interpreted by Me EKG shows normal: sinus rhythm Rate: normal - EKG Data Interpretation: normal EKG, unchanged when compared t (04/01/2017) - Radiology Data Radiology results: image reviewed (chest x-ray) interpreted by me: Chest x-ray-no focal infiltrates, no pneumothorax - Differential Diagnosis costochondritis, pleurisy, PE, ACS, GERD Critical care attestation.: If time is entered above; I have spent that time in minutes in the direct care of this critically ill patient, excluding procedure time. ED Disposition Clinical Impression: Atypical chest pain Disposition: DC-01 TO HOME OR SELFCARE Is pt being admited?: No Does the pt Need Aspirin: No Condition: Stable Instructions: Chest Pain (ED) Additional Instructions: Return to the emergency department immediately should you develop worsening symptoms, fever, inability to tolerate food or liquid or any other concerns. Prescriptions: Ibuprofen [Motrin 800 MG tab] 800 mg PO Q8HR PRN #20 tablet PRN Reason: Pain, Moderate (4-6) Tramadol HCl [Ultram] 50 mg PO Q6H PRN #10 tablet PRN Reason: Pain , Severe (7-10) Referrals: [facility] [Outside] - 3-5 Days ARUN YODER MD [Staff Physician] - 3-5 Days (Dr. Yoder is a primary physician. Please follow-up with him to be established as a patient) Time of Disposition: 03:06
--- NOTE | 2018-06-08 03:05 | XRay Report ---
FINAL REPORT PROCEDURE: XR CHEST ROUTINE 2V TECHNIQUE: PA and lateral chest radiographs were obtained. CPT 73122 HISTORY: chest pain COMPARISON: No prior studies are available for comparison. FINDINGS: Heart: Normal. Mediastinum/Vessels: Normal. Lungs/Pleural space: Normal. Bony thorax: No acute osseous abnormality. Other: IMPRESSION: There is no evidence of an acute cardiopulmonary process.
[2018-06-08 03:37] VITALS: BP 131/76
== END 2018-06-08 03:15 | disposition home or self-care (01) ==
LOC: ED 19:48
DX: R07.89 Other chest pain (principal); G43.909 Migraine, unspecified, not intractable, without status migrainosus; J45.909 Unspecified asthma, uncomplicated; F17.200 Nicotine dependence, unspecified, uncomplicated
CPT/HCPCS: 36415; 71046; 80048; 84484; 84703; 85025; 85379; 93005; 93010; 99284

== ENCOUNTER 2018-10-18 00:15 | Emergency (ER) | payer OTHER ==
[2018-10-18 01:25] VITALS: BP 142/91
[2018-10-18] MEDS ORDERED: ZOFRAN ODT ONE ×2 (01:30→05:16)
[2018-10-18] MEDS ORDERED: ZOFRAN ODT PO ONE (05:15)
[2018-10-18] MEDS: ZOFRAN ODT PO ONE ×2 (05:18→05:32)
--- NOTE | 2018-10-18 05:39 | Emergency Department Report ---
- General Chief Complaint: Upper Respiratory Infection Stated Complaint: SOB/EMESIS Time Seen by Provider: 10/18/18 04:27 Source: patient Mode of arrival: Ambulatory Limitations: No Limitations - History of Present Illness Initial Comments: Patient is 27-year-old -[place] female with history of bronchitis who presents for URI symptoms including cough congestion sore throat ear pains nocturnal fever and nocturnal wheezing 3 days wheezing is controlled with albuterol inhaler patient states postnasal drip causing nausea and vomiting 3 episodes tonight there is no fever noted at this time symptoms are exacerbated by exposure symptoms are relieved by nothing try MD Complaint: cough, rhinorrhea, nasal congestion, sinus pain Onset/Timin -: days(s) Severity: moderate Severity scale (0 -10): 5 Consistency: intermittent Improves With: nothing Worsens With: activity, other (environmental exposure ) Associated Symptoms: fever (noc ), rhinorrhea, nasal congestion, sore throat, cough, vomiting, other (wheezing noc ) Treatments Prior to Arrival: none, other - Related Data Home Medications Medication Instructions Recorded Confirmed Last Taken Treximet 85-500 mg Tablet 1 tab PO BID 01/29/17 01/29/17 Unknown Previous Rx's Medication Instructions Recorded Last Taken Type ALBUTEROL Inhaler (OR & NICU) 2 puff IH QID PRN #1 inhalation 04/29/17 Unknown Rx [ProAir HFA Inhaler] DULoxetine [Cymbalta] 30 mg PO QDAY #10 capsule 04/29/17 Unknown Rx Fluticasone [Flonase] 1 spray NS QDAY PRN #1 bottle 04/29/17 Unknown Rx Ibuprofen [Motrin] 600 mg PO Q8H PRN #15 tablet 04/29/17 Unknown Rx Tobramycin 0.3% [Tobrex] 1 drop OD QID 7 Days bottle 04/29/17 Unknown Rx Topiramate [Topamax] 25 mg PO HS #10 tablet 04/29/17 Unknown Rx Ibuprofen [Motrin 800 MG tab] 800 mg PO Q8HR PRN #20 tablet 06/08/18 Unknown Rx Tramadol HCl [Ultram] 50 mg PO Q6H PRN #10 tablet 06/08/18 Unknown Rx ALBUTEROL Inhaler(NF) [VENTOLIN 2 puff IH Q4H PRN #1 inha 10/18/18 Unknown Rx Inhaler(NF)] Azithromycin [Zithromax Z-AZUL] 250 mg PO DAILY #6 tab 10/18/18 Unknown Rx Benzonatate [Tessalon Perles] 100 mg PO Q8HR PRN #30 capsule 10/18/18 Unknown Rx Ibuprofen 800 mg PO TID PRN #30 tablet 10/18/18 Unknown Rx Ondansetron [Zofran Odt] 4 mg PO Q8HR PRN #12 tab.rapdis 10/18/18 Unknown Rx predniSONE [Deltasone] 40 mg PO QDAY 5 Days #10 tab 10/18/18 Unknown Rx Allergies Allergy/AdvReac Type Severity Reaction Status Date / Time No Known Allergies Allergy Verified 06/08/18 01:21 ED Review of Systems ROS: Stated complaint: SOB/EMESIS Other details as noted in HPI Constitutional: denies: chills, fever Eyes: denies: eye pain, eye discharge, vision change ENT: ear pain, throat pain, congestion Respiratory: cough, shortness of breath, wheezing Cardiovascular: denies: chest pain, palpitations Endocrine: no symptoms reported Gastrointestinal: nausea, vomiting Genitourinary: denies: urgency, dysuria, discharge Musculoskeletal: denies: back pain, joint swelling, arthralgia Skin: denies: rash, lesions Neurological: denies: headache, weakness, paresthesias Psychiatric: denies: anxiety, depression Hematological/Lymphatic: denies: easy bleeding, easy bruising ED Past Medical Hx - Past Medical History Previous Medical History?: Yes Hx Headaches / Migraines: Yes Hx Asthma: Yes (as a child) Additional medical history: Bronchitis - Surgical History Past Surgical History?: Yes Additional Surgical History: X1 - Social History Smoking Status: Light Tobacco Smoker Substance Use Type: None - Medications Home Medications: Home Medications Medication Instructions Recorded Confirmed Last Taken Type Treximet 85-500 mg Tablet 1 tab PO BID 01/29/17 01/29/17 Unknown History ALBUTEROL Inhaler (OR & NICU) 2 puff IH QID PRN #1 inhalation 04/29/17 Unknown Rx [ProAir HFA Inhaler] DULoxetine [Cymbalta] 30 mg PO QDAY #10 capsule 04/29/17 Unknown Rx Fluticasone [Flonase] 1 spray NS QDAY PRN #1 bottle 04/29/17 Unknown Rx Ibuprofen [Motrin] 600 mg PO Q8H PRN #15 tablet 04/29/17 Unknown Rx Tobramycin 0.3% [Tobrex] 1 drop OD QID 7 Days bottle 04/29/17 Unknown Rx Topiramate [Topamax] 25 mg PO HS #10 tablet 04/29/17 Unknown Rx Ibuprofen [Motrin 800 MG tab] 800 mg PO Q8HR PRN #20 tablet 06/08/18 Unknown Rx Tramadol HCl [Ultram] 50 mg PO Q6H PRN #10 tablet 06/08/18 Unknown Rx ALBUTEROL Inhaler(NF) [VENTOLIN 2 puff IH Q4H PRN #1 inha 10/18/18 Unknown Rx Inhaler(NF)] Azithromycin [Zithromax Z-AZUL] 250 mg PO DAILY #6 tab 10/18/18 Unknown Rx Benzonatate [Tessalon Perles] 100 mg PO Q8HR PRN #30 capsule 10/18/18 Unknown Rx Ibuprofen 800 mg PO TID PRN #30 tablet 10/18/18 Unknown Rx Ondansetron [Zofran Odt] 4 mg PO Q8HR PRN #12 tab.rapdis 10/18/18 Unknown Rx predniSONE [Deltasone] 40 mg PO QDAY 5 Days #10 tab 10/18/18 Unknown Rx ED Physical Exam - General Limitations: No Limitations General appearance: alert, in no apparent distress - Head Head exam: Present: atraumatic, normocephalic - Eye Eye exam: Present: normal appearance - ENT ENT exam: Present: normal orophraynx, mucous membranes moist, TM's normal bilaterally, normal external ear exam - Neck Neck exam: Present: normal inspection, full ROM. Absent: tenderness, meningismus, lymphadenopathy, thyromegaly - Respiratory Respiratory exam: Present: normal lung sounds bilaterally, chest wall tenderness. Absent: respiratory distress, wheezes, stridor - Cardiovascular Cardiovascular Exam: Present: regular rate, normal rhythm. Absent: systolic murmur, diastolic murmur, rubs, gallop - GI/Abdominal GI/Abdominal exam: Present: soft, normal bowel sounds. Absent: distended, rebound, bruit, hernia - Rectal Rectal exam: Present: deferred - Extremities Exam Extremities exam: Present: normal inspection, full ROM, normal capillary refill. Absent: tenderness, pedal edema - Back Exam Back exam: Present: normal inspection, full ROM. Absent: tenderness, CVA tenderness (R), CVA tenderness (L), muscle spasm - Neurological Exam Neurological exam: Present: alert, oriented X3, normal gait - Psychiatric Psychiatric exam: Present: normal affect, normal mood - Skin Skin exam: Present: warm, dry, intact, normal color. Absent: rash ED Course Vital Signs 10/18/18 01:16 Temperature 99.1 F Pulse Rate 91 H Respiratory 18 Rate Blood Pressure 142/91 O2 Sat by Pulse 98 Oximetry ED Medical Decision Making - Radiology Data Radiology results: report reviewed, image reviewed FINAL REPORT EXAM: XR CHEST ROUTINE 2V HISTORY: sob TECHNIQUE: PA and lateral chest radiographs PRIORS: June 08, 2018 FINDINGS: No mediastinal shift. Cardiac silhouette is not enlarged. No pneumothorax, effusion, or focal pulmonary opacity. Nipple jewelry. No acute skeletal finding. IMPRESSION: No focal pulmonary opacity. Transcribed By: DEVEN Dictated By: ELLA CAMACHO MD Electronically Authenticated By: ELLA CAMACHO MD Signed Date/Time: 10/18/18 0601 - Medical Decision Making Symptoms improved patient tolerated by mouth intake without nausea vomiting at this time. This is likely bronchitis plan continue albuterol inhaler short burst steroids CPAP Tessalon Perles Zofran when necessary ibuprofen for pain patient will follow with PCP in 2-3 days return to emergency department should symptoms worsen patient is currently A/O 3 , ambulatory with no shortness of breath there is no wheezing appears well and nontoxic and well-hydrated and nourished at this time patient DC'd home in stable condition Critical care attestation.: If time is entered above; I have spent that time in minutes in the direct care of this critically ill patient, excluding procedure time. ED Disposition Clinical Impression: Bronchitis Nausea & vomiting Qualifiers: Vomiting type: unspecified Vomiting Intractability: non-intractable Qualified Code(s): R11.2 - Nausea with vomiting, unspecified Disposition: DC-01 TO HOME OR SELFCARE Is pt being admited?: No Does the pt Need Aspirin: No Condition: Stable Instructions: Chronic Bronchitis (ED), Acute Bronchitis (ED), Acute Nausea and Vomiting (ED) Prescriptions: ALBUTEROL Inhaler(NF) [VENTOLIN Inhaler(NF)] 2 puff IH Q4H PRN #1 inha PRN Reason: shortness of breath wheezing Azithromycin [Zithromax Z-AZUL] 250 mg PO DAILY #6 tab Benzonatate [Tessalon Perles] 100 mg PO Q8HR PRN #30 capsule PRN Reason: Cough Ibuprofen 800 mg PO TID PRN #30 tablet PRN Reason: fever pain Ondansetron [Zofran Odt] 4 mg PO Q8HR PRN #12 tab.rapdis PRN Reason: nausea and vomiting predniSONE [Deltasone] 40 mg PO QDAY 5 Days #10 tab Referrals: PRIMARY CARE,MD [Primary Care Provider] - 3-5 Days Forms: Work/School Release Form(ED) Time of Disposition: 06:39
--- NOTE | 2018-10-18 06:01 | XRay Report ---
FINAL REPORT EXAM: XR CHEST ROUTINE 2V HISTORY: sob TECHNIQUE: PA and lateral chest radiographs PRIORS: June 08, 2018 FINDINGS: No mediastinal shift. Cardiac silhouette is not enlarged. No pneumothorax, effusion, or focal pulmon prasad opacity. Nipple jewelry. No acute skeletal finding. IMPRESSION: No focal pulmonary opacity.
== END 2018-10-18 06:52 | disposition home or self-care (01) ==
LOC: ED 00:15
DX: J40 Bronchitis, not specified as acute or chronic (principal); R11.2 Nausea with vomiting, unspecified; G43.909 Migraine, unspecified, not intractable, without status migrainosus; F17.200 Nicotine dependence, unspecified, uncomplicated
CPT/HCPCS: 71046; 99283; Q0162

== ENCOUNTER 2019-01-02 22:17 | Emergency (ER) | payer OTHER ==
[2019-01-02 22:34] VITALS: BP 157/97
[2019-01-03] MEDS ORDERED: PROVENTIL IH ONE (01:42)
[2019-01-03] MEDS ORDERED: SOLU-Medrol IM ONE (01:43)
--- NOTE | 2019-01-03 01:49 | Emergency Department Report ---
ED Asthma HPI - General Chief Complaint: Dyspnea/Respdistress Stated Complaint: CHEST PAIN Time Seen by Provider: 01/03/19 01:39 Source: patient Mode of arrival: Ambulatory Limitations: No Limitations - History of Present Illness Initial Comments: Patient is 28 years old female with no significant past medical history except for asthma. Patient presented to the ER complaining of asthma attack starting yesterday. Patient is complaining of shortness of breath and wheezing and tightness in her chest. Patient stated that she is out of her albuterol. Patient denied any fever or chills. MD Complaint: "asthma attack", shortness of breath, wheezing Asthma History: childhood onset Severity: moderate Context: recent URI Associated Symptoms: dry cough - Related Data Current Asthma Therapy: inhaled bronchodilator Home Medications Medication Instructions Recorded Confirmed Last Taken Treximet 85-500 mg Tablet 1 tab PO BID 01/29/17 01/29/17 Unknown Previous Rx's Medication Instructions Recorded Last Taken Type ALBUTEROL Inhaler (OR & NICU) 2 puff IH QID PRN #1 inhalation 04/29/17 Unknown Rx [ProAir HFA Inhaler] DULoxetine [Cymbalta] 30 mg PO QDAY #10 capsule 04/29/17 Unknown Rx Fluticasone [Flonase] 1 spray NS QDAY PRN #1 bottle 04/29/17 Unknown Rx Ibuprofen [Motrin] 600 mg PO Q8H PRN #15 tablet 04/29/17 Unknown Rx Tobramycin 0.3% [Tobrex] 1 drop OD QID 7 Days bottle 04/29/17 Unknown Rx Topiramate [Topamax] 25 mg PO HS #10 tablet 04/29/17 Unknown Rx Ibuprofen [Motrin 800 MG tab] 800 mg PO Q8HR PRN #20 tablet 06/08/18 Unknown Rx Tramadol HCl [Ultram] 50 mg PO Q6H PRN #10 tablet 06/08/18 Unknown Rx ALBUTEROL Inhaler(NF) [VENTOLIN 2 puff IH Q4H PRN #1 inha 10/18/18 Unknown Rx Inhaler(NF)] Azithromycin [Zithromax Z-AZUL] 250 mg PO DAILY #6 tab 10/18/18 Unknown Rx Benzonatate [Tessalon Perles] 100 mg PO Q8HR PRN #30 capsule 10/18/18 Unknown Rx Ibuprofen 800 mg PO TID PRN #30 tablet 10/18/18 Unknown Rx Ondansetron [Zofran Odt] 4 mg PO Q8HR PRN #12 tab.rapdis 10/18/18 Unknown Rx predniSONE [Deltasone] 40 mg PO QDAY 5 Days #10 tab 10/18/18 Unknown Rx Allergies Allergy/AdvReac Type Severity Reaction Status Date / Time No Known Allergies Allergy Verified 06/08/18 01:21 ED Review of Systems ROS: Stated complaint: CHEST PAIN Other details as noted in HPI Comment: All other systems reviewed and negative Constitutional: denies: chills, fever Respiratory: cough, shortness of breath, SOB with exertion, SOB at rest, wheezing. denies: orthopnea Cardiovascular: denies: chest pain, palpitations, dyspnea on exertion Gastrointestinal: denies: abdominal pain, nausea, vomiting, diarrhea, constipation, hematemesis, melena, hematochezia Genitourinary: denies: urgency, dysuria Neurological: denies: headache, weakness, numbness, paresthesias, confusion ED Past Medical Hx - Past Medical History Previous Medical History?: Yes Hx Headaches / Migraines: Yes Hx Asthma: Yes (as a child) Additional medical history: Bronchitis - Surgical History Past Surgical History?: Yes Additional Surgical History: X1 - Social History Smoking Status: Light Tobacco Smoker Substance Use Type: None - Medications Home Medications: Home Medications Medication Instructions Recorded Confirmed Last Taken Type Treximet 85-500 mg Tablet 1 tab PO BID 01/29/17 01/29/17 Unknown History ALBUTEROL Inhaler (OR & NICU) 2 puff IH QID PRN #1 inhalation 04/29/17 Unknown Rx [ProAir HFA Inhaler] DULoxetine [Cymbalta] 30 mg PO QDAY #10 capsule 04/29/17 Unknown Rx Fluticasone [Flonase] 1 spray NS QDAY PRN #1 bottle 04/29/17 Unknown Rx Ibuprofen [Motrin] 600 mg PO Q8H PRN #15 tablet 04/29/17 Unknown Rx Tobramycin 0.3% [Tobrex] 1 drop OD QID 7 Days bottle 04/29/17 Unknown Rx Topiramate [Topamax] 25 mg PO HS #10 tablet 04/29/17 Unknown Rx Ibuprofen [Motrin 800 MG tab] 800 mg PO Q8HR PRN #20 tablet 06/08/18 Unknown Rx Tramadol HCl [Ultram] 50 mg PO Q6H PRN #10 tablet 06/08/18 Unknown Rx ALBUTEROL Inhaler(NF) [VENTOLIN 2 puff IH Q4H PRN #1 inha 10/18/18 Unknown Rx Inhaler(NF)] Azithromycin [Zithromax Z-AZUL] 250 mg PO DAILY #6 tab 10/18/18 Unknown Rx Benzonatate [Tessalon Perles] 100 mg PO Q8HR PRN #30 capsule 10/18/18 Unknown Rx Ibuprofen 800 mg PO TID PRN #30 tablet 10/18/18 Unknown Rx Ondansetron [Zofran Odt] 4 mg PO Q8HR PRN #12 tab.rapdis 10/18/18 Unknown Rx predniSONE [Deltasone] 40 mg PO QDAY 5 Days #10 tab 10/18/18 Unknown Rx ED Physical Exam - General Limitations: No Limitations General appearance: alert, in no apparent distress - Head Head exam: Present: atraumatic, normocephalic, normal inspection - Eye Eye exam: Present: normal appearance, PERRL - ENT ENT exam: Present: normal exam, normal orophraynx, mucous membranes moist - Neck Neck exam: Present: normal inspection, full ROM. Absent: tenderness, meningismus, lymphadenopathy, thyromegaly - Respiratory Respiratory exam: Present: wheezes, prolonged expiratory. Absent: respiratory distress, rales, rhonchi, stridor, accessory muscle use, decreased breath sounds - Cardiovascular Cardiovascular Exam: Present: regular rate, normal rhythm, normal heart sounds - GI/Abdominal GI/Abdominal exam: Present: soft, normal bowel sounds. Absent: distended, tenderness, guarding, rebound, rigid, organomegaly, mass, bruit, pulsatile mass, hernia - Extremities Exam Extremities exam: Present: normal inspection, full ROM, normal capillary refill - Back Exam Back exam: Present: normal inspection, full ROM. Absent: tenderness, CVA tenderness (R), CVA tenderness (L), muscle spasm, paraspinal tenderness, vertebral tenderness - Neurological Exam Neurological exam: Present: alert, oriented X3, CN II-XII intact, normal gait, reflexes normal - Skin Skin exam: Present: warm, intact, normal color ED Course Vital Signs 01/02/19 01/03/19 22:32 03:21 Temperature 98.7 F Pulse Rate 96 H Respiratory 24 18 Rate Blood Pressure 157/97 [Right] O2 Sat by Pulse 98 98 Oximetry ED Medical Decision Making - Medical Decision Making Patient is 28 years old female with no significant past medical history except for asthma. Patient presented to the ER complaining of asthma attack starting yesterday. Patient is complaining of shortness of breath and wheezing and tightness in her chest. Patient stated that she is out of her albuterol. Patient denied any fever or chills. Patient stated that she is feeling much better. Patient received albuterol 5 mg and Solu-Medrol 125 mg IM. Advised the patient to follow-up with her primary care physician in the next 2-3 days. Critical care attestation.: If time is entered above; I have spent that time in minutes in the direct care of this critically ill patient, excluding procedure time. ED Disposition Clinical Impression: Asthma exacerbation Disposition: DC-01 TO HOME OR SELFCARE Is pt being admited?: No Condition: Stable Instructions: Asthma (ED) Referrals: ORLY BASILIO MD [Primary Care Provider] - 3-5 Days
== END 2019-01-03 04:47 | disposition home or self-care (01) ==
LOC: ED 22:17
DX: J45.901 Unspecified asthma with (acute) exacerbation (principal); G43.909 Migraine, unspecified, not intractable, without status migrainosus; F17.200 Nicotine dependence, unspecified, uncomplicated; Z79.899 Other long term (current) drug therapy
CPT/HCPCS: 93005; 93010; 94640; 96372; 99283; J2930

== ENCOUNTER 2019-07-25 23:42 | Emergency (ER) | payer OTHER ==
[2019-07-25 23:53] VITALS: BP 144/85
[2019-07-26] MEDS ORDERED: REGLAN IV ONE (00:33)
[2019-07-26] MEDS ORDERED: TORADOL IV ONE (00:33)
[2019-07-26] MEDS ORDERED: NACL 0.9% 1000 ML 1,000 ML IV ONE (00:33)
[2019-07-26] MEDS ORDERED: BENADRYL IV ONE (00:33)
--- NOTE | 2019-07-26 00:50 | Emergency Department Report ---
ED Headache HPI - General Chief Complaint: Headache Stated Complaint: HEADACHE Time Seen by Provider: 07/26/19 00:28 - History of Present Illness Initial Comments: Patient is a 28-year-old female presents emergency room with complaints of a frontal headache that began today. She denies any nausea, vomiting, diarrhea, fever, recent illness, vision changes, numbness, weakness, any other symptoms. pt states that this headache feels typical of her migraines. pt states that she took her abortive migraine medications without much relief. she states that she takes 4 migraine medications and 1 is an injection which she gives herself every 30 days. past medical history of chronic migraines, asthma. Patient has a neurologist which she last saw on June and has another appointment on August 15. she denies any allergies medications. Allergies/Adverse Reactions: Allergies No Known Allergies Allergy (Verified 06/08/18 01:21) Home Medications: Ambulatory Orders Treximet 85-500 mg Tablet 1 tab PO BID 01/29/17 ALBUTEROL Inhaler (OR & NICU) [ProAir HFA Inhaler] 2 puff IH QID PRN #1 inhalation 04/29/17 DULoxetine [Cymbalta] 30 mg PO QDAY #10 capsule 04/29/17 Fluticasone [Flonase] 1 spray NS QDAY PRN #1 bottle 04/29/17 Ibuprofen [Motrin] 600 mg PO Q8H PRN #15 tablet 04/29/17 Tobramycin 0.3% [Tobrex] 1 drop OD QID 7 Days bottle 04/29/17 Topiramate [Topamax] 25 mg PO HS #10 tablet 04/29/17 Ibuprofen [Motrin 800 MG tab] 800 mg PO Q8HR PRN #20 tablet 06/08/18 Tramadol HCl [Ultram] 50 mg PO Q6H PRN #10 tablet 06/08/18 ALBUTEROL Inhaler(NF) [VENTOLIN Inhaler(NF)] 2 puff IH Q4H PRN #1 inha 10/18/18 Azithromycin [Zithromax Z-AZUL] 250 mg PO DAILY #6 tab 10/18/18 Benzonatate [Tessalon Perles] 100 mg PO Q8HR PRN #30 capsule 10/18/18 Ibuprofen [Ibuprofen 800] 800 mg PO TID PRN #30 tablet 10/18/18 Ondansetron [Zofran Odt] 4 mg PO Q8HR PRN #12 tab.rapdis 10/18/18 predniSONE [Deltasone] 40 mg PO QDAY 5 Days #10 tab 10/18/18 ALBUTEROL Inhaler (OR & NICU) [ProAir HFA Inhaler] 2 puff IH QID PRN #1 inhalation 01/03/19 Prednisone [predniSONE 10 mg (6-Day Pack, 21 Tabs)] 10 mg PO .TAPER #1 tab.ds.pk 01/03/19 ED Review of Systems ROS: Stated complaint: HEADACHE Other details as noted in HPI Comment: All other systems reviewed and negative ED Past Medical Hx - Past Medical History Previous Medical History?: Yes Hx Headaches / Migraines: Yes Hx Asthma: Yes (as a child) Additional medical history: Bronchitis - Surgical History Past Surgical History?: Yes Additional Surgical History: X1 - Social History Smoking Status: Former Smoker Substance Use Type: None - Medications Home Medications: Home Medications Medication Instructions Recorded Confirmed Last Taken Type Treximet 85-500 mg Tablet 1 tab PO BID 01/29/17 01/29/17 Unknown History ALBUTEROL Inhaler (OR & NICU) 2 puff IH QID PRN #1 inhalation 04/29/17 Unknown Rx [ProAir HFA Inhaler] DULoxetine [Cymbalta] 30 mg PO QDAY #10 capsule 04/29/17 Unknown Rx Fluticasone [Flonase] 1 spray NS QDAY PRN #1 bottle 04/29/17 Unknown Rx Ibuprofen [Motrin] 600 mg PO Q8H PRN #15 tablet 04/29/17 Unknown Rx Tobramycin 0.3% [Tobrex] 1 drop OD QID 7 Days bottle 04/29/17 Unknown Rx Topiramate [Topamax] 25 mg PO HS #10 tablet 04/29/17 Unknown Rx Ibuprofen [Motrin 800 MG tab] 800 mg PO Q8HR PRN #20 tablet 06/08/18 Unknown Rx Tramadol HCl [Ultram] 50 mg PO Q6H PRN #10 tablet 06/08/18 Unknown Rx ALBUTEROL Inhaler(NF) [VENTOLIN 2 puff IH Q4H PRN #1 inha 10/18/18 Unknown Rx Inhaler(NF)] Azithromycin [Zithromax Z-AZUL] 250 mg PO DAILY #6 tab 10/18/18 Unknown Rx Benzonatate [Tessalon Perles] 100 mg PO Q8HR PRN #30 capsule 10/18/18 Unknown Rx Ibuprofen [Ibuprofen 800] 800 mg PO TID PRN #30 tablet 10/18/18 Unknown Rx Ondansetron [Zofran Odt] 4 mg PO Q8HR PRN #12 tab.rapdis 10/18/18 Unknown Rx predniSONE [Deltasone] 40 mg PO QDAY 5 Days #10 tab 10/18/18 Unknown Rx ALBUTEROL Inhaler (OR & NICU) 2 puff IH QID PRN #1 inhalation 01/03/19 Unknown Rx [ProAir HFA Inhaler] Prednisone [predniSONE 10 mg 10 mg PO .TAPER #1 tab.ds.pk 01/03/19 Unknown Rx (6-Day Pack, 21 Tabs)] ED Physical Exam - General Limitations: No Limitations General appearance: alert, in no apparent distress - Head Head exam: Present: atraumatic, normocephalic - Eye Eye exam: Present: normal appearance, PERRL, EOMI - ENT ENT exam: Present: mucous membranes moist - Respiratory Respiratory exam: Present: normal lung sounds bilaterally. Absent: respiratory distress, wheezes, rales, rhonchi, stridor, chest wall tenderness, accessory muscle use, decreased breath sounds, prolonged expiratory - Cardiovascular Cardiovascular Exam: Present: regular rate, normal rhythm, normal heart sounds. Absent: systolic murmur, diastolic murmur, rubs, gallop - Neurological Exam Neurological exam: Present: alert, oriented X3, CN II-XII intact, normal gait. Absent: motor sensory deficit - Psychiatric Psychiatric exam: Present: normal affect, normal mood - Skin Skin exam: Present: warm, dry, intact ED Course Vital Signs 07/25/19 23:46 Temperature 98.0 F Pulse Rate 65 Respiratory 16 Rate Blood Pressure 144/85 O2 Sat by Pulse 97 Oximetry ED Medical Decision Making - Medical Decision Making Patient is a 28-year-old female presents emergency room with complaints of a frontal headache that began today. She denies any nausea, vomiting, diarrhea, fever, recent illness, vision changes, numbness, weakness, any other symptoms. pt states that this headache feels typical of her migraines. pt states that she took her abortive migraine medications without much relief. she states that she takes 4 migraine medications and 1 is an injection which she gives herself every 30 days. past medical history of chronic migraines, asthma. Patient has a neurologist which she last saw on June and has another appointment on August 15. she denies any allergies medications. VSS. on exam: PERRL, EOMI, no focal neuro deficits. pt given 1L NS, reglan, benadryl, and toradol and BURCIAGA completely resolved. advised pt to please increase your water intake. Please take your migraine medications as you are prescribed by your neurologist. follow up with your neurologist in the next 2-3 days. return to the emergency room for any new or worsening symptoms. - Differential Diagnosis migraine, tension BURCIAGA, cluster BURCIAGA Critical care attestation.: If time is entered above; I have spent that time in minutes in the direct care of this critically ill patient, excluding procedure time. ED Disposition Clinical Impression: Migraine headache Qualifiers: Migraine type: unspecified Status migrainosus presence: without status migrainosus Intractability: not intractable Qualified Code(s): G43.909 - Migraine, unspecified, not intractable, without status migrainosus Disposition: TO HOME OR SELFCARE Is pt being admited?: No Does the pt Need Aspirin: No Condition: Stable Instructions: Migraine Headache (ED) Additional Instructions: Please increase your water intake. Please take your migraine medications as you are prescribed by your neurologist. follow up with your neurologist in the next 2-3 days. return to the emergency room for any new or worsening symptoms. Referrals: your, neurologist [Other] - 2-3 Days Forms: Work/School Release Form(ED) Time of Disposition: 02:01 Print Language: TELUGU
== END 2019-07-26 02:15 | disposition home or self-care (01) ==
LOC: ED 23:42
DX: G43.909 Migraine, unspecified, not intractable, without status migrainosus (principal); J45.909 Unspecified asthma, uncomplicated; Z87.891 Personal history of nicotine dependence; Z98.890 Other specified postprocedural states; Z79.899 Other long term (current) drug therapy
CPT/HCPCS: 96374; 96375; 99282; J1200; J1885; J2765; J7030

== ENCOUNTER 2019-11-27 21:44 | Emergency (ER) | payer SELFPAY ==
[2019-11-27 21:56] VITALS: BP 152/87
== END 2019-11-27 23:50 | disposition left against medical advice (07) ==
LOC: ED 21:44
DX: M54.89 Other dorsalgia (principal); Z53.21 Procedure and treatment not carried out due to patient leaving prior to being seen by health care provider

== ENCOUNTER 2022-04-15 12:54 | Emergency (ER) | payer SELFPAY | END 2022-04-15 17:45 | disposition left against medical advice (07) | LOC: ED 12:54 | DX: R10.9 Unspecified abdominal pain (principal); Z53.21 Procedure and treatment not carried out due to patient leaving prior to being seen by health care provider ==